=== PATIENT | female | born 2000 | race Caucasian/White ===

== ENCOUNTER 2024-01-16 14:22 | Emergency (ER) | payer OTHER, SELFPAY ==
[2024-01-16] VITALS (8 sets, daily range): BP systolic 118–136; BP diastolic 71–106; BMI 28.5
[2024-01-16 15:00] LABS: % Basophils 0.3 % (0-2); % Eosinophils 0.4 % (0-6); % Immature Granulocytes 0.2 % (0-0.5); % Lymphocytes 26.2 % (20.5-51.1); % Monocytes 8.9 % (1.7-9.3); Absolute Lymphocytes 2.4 10^3/uL (1.2-3.4); Absolute Monocytes 0.8 10^3/uL (0.1-0.6); Hematocrit 41.1 % (37.0-47.0); Hemoglobin 14.6 g/dL (12.0-16.0); Mean Corp Hgb Conc. 35.5 g/dL (33.0-37.0); Mean Corpuscular Hgb 32.9 pg (27.0-31.0); Mean Corpuscular Volume 92.6 fL (81.0-99.0); Mean Platelet Volume 9.3 fL (7.4-10.4); Nucleated Red Blood Cells % 0 %; Platelet Count 243 10^3/uL (130-400); Red Blood Cell Count 4.44 10^6/uL (4.20-5.40); Red Cell Dist. Width 11.9 % (11.5-14.5); White Blood Cell Count 9.3 10^3/uL (4.8-10.8)
[2024-01-16 15:08] LABS: HCG, Serum Qualitative Screen Negative
[2024-01-16 15:10] LABS: ALT (SGPT) 155 U/L (0-35); AST (SGOT) 236 U/L (14-36); Albumin 4.9 g/dl (3.5-5.0); Alkaline Phosphatase 109 U/L (38-126); Blood Urea Nitrogen 13 mg/dl (7-17); Calcium 10.4 mg/dl (8.4-10.2); Carbon Dioxide 25 mmol/L (22-30); Chloride 101 mmol/L (98-107); Estimated Creatinine Clearance > 125 ml/min; Glucose 99 mg/dl (70-99); Lipase 499 U/L (23-300); Potassium 3.5 mmol/L (3.5-5.1); Sodium 137 mmol/L (135-145); Total Bilirubin 0.7 mg/dl (0.2-1.3); Total Protein 7.8 g/dl (6.3-8.2); eGFR > 60.00
[2024-01-16 15:18] LABS: Urine Albumin Trace (Neg - Trace); Urine Bilirubin 1+ (Negative); Urine Character Clear (Clear); Urine Color Amber; Urine Glucose Negative (Negative); Urine Ketone Trace (Negative); Urine Leukocyte 1+ (Negative); Urine Nitrite Negative (Negative); Urine Occult Blood Negative (Negative); Urine Urobilinogen Negative (Neg - 1+)
--- NOTE | 2024-01-16 15:18 | ED.GENMED ---
History of Present Illness
General
Chief Complaint: Abdominal Pain
Source: patient
Exam Limitations: none
Time Seen by Provider: 01/16/24 15:13
Nursing documentation reviewed up to this point in time: agreed with
History of Present Illness
History of Present Illness:
23-year-old female history of migraines states she has had intermittent stomach pains for the past 2 months, only after eating. She has had intermittent loose stools and bloating in her stomach. She describes the pain as dull.
For the past 3 days she has also had intermittent right lower quadrant pain. States it occurs hourly and lasts 10 to 15 minutes 'like a shooting sharp pain shooting up the right side of her abdomen. She states now her pain is 5/10. She denies
fever or chills. Denies chest pain or trouble breathing. Denies UTI symptoms. She states her stools have been loose up until 2 days ago when they are more diarrhea and she has been taking Kaopectate noting much less diarrhea today.
Past History
Past History
ED Past Medical History: Other (migraines)
ED Past Surgical History: None
Social History
Tobacco: Non-smoker
Alcohol: Occasional
Personal: Single
Living: alone
Employment: Employed
Review of Systems
Review of Systems
Allergies reviewed?: Yes
All Other Systems: ROS reviewed and negative except as documented in HPI and ROS
Constitutional: Denies fever or chills
Respiratory: Denies trouble breathing
Cardiac: Denies chest pain
ABD/GI: Reports abdominal pain and diarrhea (improving with Kaopectate); Denies vomiting, bloody stools or black stools
: Reports no symptoms
Musculoskeletal: Reports no symptoms
Skin: Reports no symptoms
Neurological: Reports no symptoms
Phy Exam
Physical Exam
Physical Exam:
GENERAL: No acute distress. A&Ox3.
CONSTITUTIONAL: Afebrile.
EYES: , conjunctivae normal
ENMT: moist mucus membranes, Pharynx nl
RESPIRATORY: Regular respirations, nonlabored, lungs clear.
CARDIOVASCULAR: Regular rate and rhythm, no murmurs, no rubs.
GI: Soft, tender to palpate right lower and right upper quadrants. Nondistended, normal BS
MUSCULOSKELETAL: Moves with ease. Well perfused.
SKIN: Warm, dry, pink
PSYCH: Normal mood and affect. Well kept, interactive and appropriate
NEUROLOGIC: Awake, alert and oriented. No focal neurological deficits
Course
Orders/Labs/Results
Orders:
Orders
01/16/24 14:28
IV Insert/Care/Rem.- Treatment PRN
Test Result ONCE
01/16/24 14:33
Urinalysis Reflex To Culture Urgent
Date Specimen was Collected: 01/16/24
Time Specimen was Collected: 14:28
Urine Microscopic Reflex Cult Urgent
Urine Culture Urgent
RYLEE Source: U
Specimen Description:
Date Specimen was Collected: 01/16/24
Time Specimen was Collected: 14:28
01/16/24 14:50
Complete Blood Count/With Diff Urgent
Comprehensive Metabolic Panel Urgent
HCG, Serum Qualitative Screen Urgent
Comment: Notify provider if positive test present
Lipase Urgent
01/16/24 15:28
US Abdomen - Appendix Only Urgent
Comment:
Reason For Exam: RLQ pain
US Abdomen Complete/Upper Urgent
Comment:
Reason For Exam: RUQ pain
01/16/24 15:29
0.9% Sodium Chloride 1000 ml [Nss] 1,000 ml IV BOLUS
Ketorolac [Toradol] 15 mg IV NOW STA
01/16/24 18:41
CT Abd/pel W Iv And Oral Contr Urgent
Comment:
Reason For Exam: Right side abdominal pain
Iohexol [Omnipaque] See Protocol PO NOW STA
Abnormal Lab Results
01/16/24 01/16/24
14:33 14:50
MCH 32.9 H pg
(27.0-31.0)
Absolute Monos (auto) 0.8 H 10^3/uL
(0.1-0.6)
Calcium 10.4 H mg/dl
(8.4-10.2)
AST 236 H U/L
(14-36)
ALT 155 H U/L
(0-35)
Lipase 499 H U/L
(23-300)
Urine Ketones Trace A
(Negative)
Urine Bilirubin 1+ A
(Negative)
Leukocyte Esterase Rfl 1+ A
(Negative)
Urine Bacteria (Reflex) Few A
(Negative)
01/16/24 14:50
01/16/24 14:50
Vital Signs
Initial and Last Documented VS:
Initial Vital Signs
Temp Pulse Resp BP Pulse Ox
99.3 F 86 16 136/106 98
01/16/24 14:23 01/16/24 14:23 01/16/24 14:23 01/16/24 14:23 01/16/24 14:23
Last Documented Vital Signs
Temp Pulse Resp BP Pulse Ox
99.3 F 77 20 128/85 99
01/16/24 14:23 01/16/24 21:38 01/16/24 21:38 01/16/24 21:38 01/16/24 21:38
MDM/Problems Addressed
Differential Diagnosis Includes:
Viral gastroenteritis, Biliary colic, cholecystitis, choledocholithiasis, appendicitis
MDM/Problems Addressed:
23-year-old female history of migraines states she has had intermittent stomach pains for the past 2 months, only after eating. She has had intermittent loose stools and bloating in her stomach. She describes the pain as dull.
For the past 3 days she has also had intermittent right lower quadrant pain. States it occurs hourly and lasts 10 to 15 minutes 'like a shooting sharp pain shooting up the right side of her abdomen. She states now her pain is 5/10. She denies
fever or chills. Denies chest pain or trouble breathing. Denies UTI symptoms. She states her stools have been loose up until 2 days ago when they are more diarrhea and she has been taking Kaopectate noting much less diarrhea today.
Febrile, NAD, pleasant, states pain is 5/10 at this time. Has taken nothing for pain.
CBC with no clinically significant abnormality
CMP: Lipase 499, elevated AST and ALT,
hCG negative
UA: +1 bilirubin, no sign of infection.
6:30 PM
Ultrasound of the appendix radiology report read: No sonographic evidence of appendicitis.
Upper abdomen ultrasound radiology report read: The gallbladder is well-visualized and is normal. No dilatation of the common or intrahepatic ducts. The pancreas is normal, diffuse fatty filtration liver. Otherwise normal.
Case discussed with Dr. Barajas, will proceed to CAT scan. Patient states she has had some relief after IV Toradol.
9:[address] abdomen pelvis with p.o. and IV contrast radiology report read: Diffuse fatty infiltration of liver. Otherwise normal.
No diarrhea since arrival
This is most likely viral gastroenteritis causing mild elevation in liver enzymes and lipase.
Pt given copies of all reports and lab work. She will f/u with her PCP
Recommend OTC, GI f/u
*Critical Care Note
Total Time (30-74mins, 75-104mins- exclusive of procedures): Not Applicable
ED Attending Note
-
Portions of this chart may have been created with voice recognition software.� Occasional wrong word or��sound alike� substitutions may have occurred due to the inherent limitations of voice recognition software.
Discharge Plan
Departure
Patient Disposition: Home (Routine Discharge)
Date of Disposition: 01/16/24
Time of Disposition: 21:19
Patient with high blood pressure during this ER visit?: No
Condition: Good
Discharge Problem:
Abdominal pain, Gastroenteritis
Instructions: Viral gastroenteritis in adults, Acid Reflux and GERD in Adults (DC), Abdominal Pain
Prescriptions:
No Action
No Current Medications
0
Referrals:
Joseline Lorenzo MD [Family Provider] - Call in 1-3 days for appt
Activity Restrictions/Additional Instructions:
As we discussed, call your doctors office Friday morning to make an appointment for sometime within the next 2 weeks to repeat your blood work
Take copies of all test results with you to discuss.
Try over the counter Omeprazole 20 mg daily and let your doctor know if it helps
Interventions
Interventions:
*Risk Screen - Suicide Last Done: 01/16/24 14:23
*General Assessment Last Done: 01/16/24 14:23
*Neglect/Abuse Screening Last Done: 01/16/24 14:23
ED- Fall Risk Assessment Last Done: 01/16/24 15:03
*ED COVID-19 Vaccine History Last Done: 01/16/24 21:38
*Nursing Disposition Last Done: 01/16/24 21:38
EY-Lduqbz-Vgegzlxkat Assessment Last Done: 01/16/24 15:03
Discharge Date and Time
Discharge Date/Time: 01/16/24 21:39
Print Language: CROATIAN
[2024-01-16] MEDS: NSS 1000 IV (15:39)
[2024-01-16] MEDS: TORADOL 15 MG IV (15:39)
[2024-01-16 16:31] LABS: Urine Calcium Oxalate Crystals Present
[2024-01-16 16:32] LABS: Urine Bacteria Few (Negative); Urine Mucus Few; Urine Red Blood Cell 0-2 /HPF (0-2); Urine Squamous Cell 26-30 /LPF (Few)
[2024-01-16] MEDS: OMNIPAQUE 50 ML PO (18:47)
== END 2024-01-16 21:39 | disposition home or self-care (01) ==
LOC: EMR 14:22
PROVIDERS: Emergency Medicine; EMERGENCY PHYSICIAN Emergency Medicine; FAMILY PHYSICIAN Family Medicine
DX: K52.9 Noninfective gastroenteritis and colitis, unspecified (principal); R10.31 Right lower quadrant pain
CPT/HCPCS: 99285; 96374; 96361; 74177; 76700; 76705; 80053; 81003; 81015; 83690; 84703; 85025; 87086; Q9967

== ENCOUNTER → 2024-03-03 06:22 | Day surgery (SDC) | payer OTHER, SELFPAY | LOC: GI 06:22 | PROVIDERS: ATTENDING PHYSICIAN Internal Medicine Gastroenterology | DX: K21.00 Gastro-esophageal reflux disease with esophagitis, without bleeding (principal); K31.7 Polyp of stomach and duodenum; K44.9 Diaphragmatic hernia without obstruction or gangrene; K57.10 Diverticulosis of small intestine without perforation or abscess without bleeding; R10.12 Left upper quadrant pain; R12 Heartburn | CPT/HCPCS: 43239; 88305; 88342 ==

== ENCOUNTER 2024-08-12 20:53 | Emergency (ER) | payer OTHER, SELFPAY ==
[2024-08-12 20:54] VITALS: BP 135/93
[2024-08-12 21:19] VITALS: BMI 24.5
--- NOTE | 2024-08-12 22:08 | ED.GENMED ---
History of Present Illness
<DO Ankit Person Last Filed: 08/12/24 22:10>
General
Chief Complaint: Abdominal Pain
Source: patient
Time Seen by Provider: 08/12/24 22:00
History of Present Illness
History of Present Illness:
23-year-old female presents to the emergency room complaining of upper abdominal pain. Pain began approximately 1-2 o'clock. Pain is associate with some nausea and vomiting. Nothing seems to make the pain better. It gets worse with certain
movements. No previous episodes of similar pain. Patient denies any previous abdominal surgery. She states she does have a history of a hiatal hernia. She has mild constipation as a chronic issue. She took Tylenol earlier today without any
improvement.
Past History
<DO Ankit Person Last Filed: 08/12/24 22:10>
Past History
ED Past Medical History: Other (migraines)
ED Past Surgical History: None
Social History
Tobacco: Non-smoker
Alcohol: Occasional
Personal: Single
Living: alone
Employment: Employed
Phy Exam
<DO Ankit Person Last Filed: 08/12/24 22:10>
Physical Exam
Physical Exam:
General: Awake, Alert, Oriented X3. No acute distress but appears uncomfortable
Vitals: unremarkable
Head: Atraumatic
Eyes: Pupils equal, EOMI
Throat: Airway intact, no exudates
Neck: Trachea midline
Lungs: Clear and equal b/l
Heart: Regular rate, no murmurs
Abd: Soft, moderate tenderness to palpation in the bilateral upper quadrant and epigastric region, No pulsatile mass
Neuro: Nonfocal
Skin: Warm, dry, no rash
Extremities: pulses equal b/l, no edema
Course
<Art Barajas DO - Last Filed: 08/12/24 22:10>
Orders/Labs/Results
Orders:
Orders
08/12/24 22:07
0.9% Sodium Chloride 1000 ml [Nss] 1,000 ml IV BOLUS
Ketorolac [Toradol] 15 mg IV NOW STA
Ondansetron Injectable [Zofran] 4 mg IV NOW STA
Test Result ONCE
08/12/24 22:08
US Abdomen Complete/Upper Urgent
Comment:
Reason For Exam: ruq and epigastric pain
08/12/24 22:20
Amylase Urgent
Complete Blood Count/With Diff Urgent
Comprehensive Metabolic Panel Urgent
Comment: ADDON
HCG, Serum Qualitative Screen Urgent
Comment: ADDED
Lipase Urgent
08/12/24 22:48
Add On- LAB Urgent
Tests Added?: CMP
08/12/24 22:54
Add On- LAB Urgent
Tests Added?: qualitative hcg
08/12/24 22:58
HYDROmorphone [Dilaudid] 0.5 mg IV NOW STA
08/12/24 23:42
Iohexol [Omnipaque] See Protocol PO NOW STA
08/13/24 02:30
CT Abd/pel W Iv And Oral Contr Urgent
Reason For Exam: abdominal pain
08/13/24 02:38
Diphenhydramine [Benadryl] 50 mg .ROUTE .STK-MED ONE
Lorazepam [Ativan] 2 mg .ROUTE .STK-MED ONE
Abnormal Lab Results
08/12/24
22:20
WBC 15.7 H 10^3/uL
(4.8-10.8)
MCH 32.9 H pg
(27.0-31.0)
Abs Immat Gran (auto) 0.1 H 10^3/uL
(0-0.05)
Absolute Neuts (auto) 14.3 H 10^3/uL
(1.4-6.5)
Absolute Lymphs (auto) 1.0 L 10^3/uL
(1.2-3.4)
Neutrophils % 91.1 H %
(42.2-75.2)
Lymphocytes % 6.4 L %
(20.5-51.1)
Sodium 133 L mmol/L
(135-145)
Carbon Dioxide 15 L mmol/L
(22-30)
Glucose 127 H mg/dl
(70-99)
Calcium 10.5 H mg/dl
(8.4-10.2)
Total Bilirubin 1.4 H mg/dl
(0.2-1.3)
AST 55 H U/L
(14-36)
ALT 42 H U/L
(0-35)
Albumin 5.3 H g/dl
(3.5-5.0)
08/12/24 22:20
08/12/24 22:20
Vital Signs
Initial and Last Documented VS:
Initial Vital Signs
Temp Pulse Resp BP Pulse Ox
36.6 C 66 17 135/93 96
08/12/24 20:54 08/12/24 20:54 08/12/24 20:54 08/12/24 20:54 08/12/24 20:54
Last Documented Vital Signs
Temp Pulse Resp BP Pulse Ox
36.6 C 82 17 114/89 97
08/12/24 20:54 08/13/24 04:00 08/13/24 04:00 08/13/24 04:00 08/13/24 04:00
<Peter Christian MD - Last Filed: 08/13/24 07:14>
Orders/Labs/Results
Orders:
Orders
08/12/24 22:07
0.9% Sodium Chloride 1000 ml [Nss] 1,000 ml IV BOLUS
Ketorolac [Toradol] 15 mg IV NOW STA
Ondansetron Injectable [Zofran] 4 mg IV NOW STA
Test Result ONCE
08/12/24 22:08
US Abdomen Complete/Upper Urgent
Comment:
Reason For Exam: ruq and epigastric pain
08/12/24 22:20
Amylase Urgent
Complete Blood Count/With Diff Urgent
Comprehensive Metabolic Panel Urgent
Comment: ADDON
HCG, Serum Qualitative Screen Urgent
Comment: ADDED
Lipase Urgent
08/12/24 22:48
Add On- LAB Urgent
Tests Added?: CMP
08/12/24 22:54
Add On- LAB Urgent
Tests Added?: qualitative hcg
08/12/24 22:58
HYDROmorphone [Dilaudid] 0.5 mg IV NOW STA
08/12/24 23:42
Iohexol [Omnipaque] See Protocol PO NOW STA
08/13/24 02:30
CT Abd/pel W Iv And Oral Contr Urgent
Reason For Exam: abdominal pain
08/13/24 02:38
Diphenhydramine [Benadryl] 50 mg .ROUTE .STK-MED ONE
Lorazepam [Ativan] 2 mg .ROUTE .STK-MED ONE
Abnormal Lab Results
08/12/24
22:20
WBC 15.7 H 10^3/uL
(4.8-10.8)
MCH 32.9 H pg
(27.0-31.0)
Abs Immat Gran (auto) 0.1 H 10^3/uL
(0-0.05)
Absolute Neuts (auto) 14.3 H 10^3/uL
(1.4-6.5)
Absolute Lymphs (auto) 1.0 L 10^3/uL
(1.2-3.4)
Neutrophils % 91.1 H %
(42.2-75.2)
Lymphocytes % 6.4 L %
(20.5-51.1)
Sodium 133 L mmol/L
(135-145)
Carbon Dioxide 15 L mmol/L
(22-30)
Glucose 127 H mg/dl
(70-99)
Calcium 10.5 H mg/dl
(8.4-10.2)
Total Bilirubin 1.4 H mg/dl
(0.2-1.3)
AST 55 H U/L
(14-36)
ALT 42 H U/L
(0-35)
Albumin 5.3 H g/dl
(3.5-5.0)
08/12/24 22:20
08/12/24 22:20
Vital Signs
Initial and Last Documented VS:
Initial Vital Signs
Temp Pulse Resp BP Pulse Ox
36.6 C 66 17 135/93 96
08/12/24 20:54 08/12/24 20:54 08/12/24 20:54 08/12/24 20:54 08/12/24 20:54
Last Documented Vital Signs
Temp Pulse Resp BP Pulse Ox
36.6 C 82 17 114/89 97
08/12/24 20:54 08/13/24 04:00 08/13/24 04:00 08/13/24 04:00 08/13/24 04:00
<Peter Christian MD - Last Filed: 08/13/24 07:14>
*Critical Care Note
Total Time (30-74mins, 75-104mins- exclusive of procedures): Not Applicable
<Peter Christian MD - Last Filed: 08/13/24 07:14>
Update Note
Update Note:
UPDATE (Peter Christian MD)
I have seen and evaluated the patient after signout and reviewed all labs and imaging.
Focused HPI: 23-year-old female presents to the emergency room for evaluation of abdominal pain. Started earlier today located in the epigastrium. Associated with nausea and vomiting. Similar symptoms in the past she says she was seen by a
candy cutter machine found to have hiatal hernia but no other clear cause.
Physical exam: Awake alert no distress. Abdomen soft, nontender on my assessment. No masses appreciated. Vital signs normal.
Medical Decision Makin-year-old female presenting with upper abdominal pain with nausea and vomiting. She was given Toradol, Zofran and ultimately dose of Dilaudid and her symptoms essentially resolved. She had lab work sent off including a
CBC which showed a slight leukocytosis. Her CMP was notable for marginal elevated T. bili to 1.4 and marginal transaminitis. Her hCG is negative. Her lipase is normal. She had an upper abdominal ultrasound which showed no gallstones but did show
some fatty liver disease which likely accounts for her abnormal transaminases. She is currently pending CT abdomen pelvis.
CT abdomen pelvis shows no acute pathology. Stable for discharge suspect that this is likely gastritis will start on a PPI. Patient comfortable with this plan. Follow-up with her PCP. All questions answered.
ED Attending Note
Dariuslt;Art Barajas, - Last Filed: 08/12/24 22:10>
-
Portions of this chart may have been created with voice recognition software.� Occasional wrong word or��sound alike� substitutions may have occurred due to the inherent limitations of voice recognition software.
Discharge Plan
Departure
Patient Disposition: Home (Routine Discharge)
Date of Disposition: 08/13/24
Time of Disposition: 03:47
Patient with high blood pressure during this ER visit?: No
Discharge Problem:
Abdominal pain
Instructions: Abdominal Pain
Prescriptions:
New
pantoprazole [Protonix] 40 mg tablet,delayed release (DR/EC)
40 mg PO DAILY Qty: 30 0RF
No Action
dextroamphetamine-amphetamine [Adderall] 10 mg Tablet
10 mg PO DAILY PRN (Reason: extra dose for school)
dextroamphetamine-amphetamine [Adderall XR] 30 mg Capsule,Extended Release 24hr
30 mg PO DAILY
Referrals:
Joseline Lorenzo MD [Family Provider] - Follow up in 5-7 days
Activity Restrictions/Additional Instructions:
Thank you for visiting the Emergency Department at [facility].
1. Please schedule a follow up appointment as directed. Call first thing tomorrow morning to make an appointment.
2. If indicated, please take your medications as instructed and indicated on discharge paperwork.
3. If any of your symptoms do not improve, or persist, or become more severe within 6-12 hours, please return to the emergency department for further care.
4. Please return to the emergency department if you develop a headache, neck pain/stiffness, fever greater than 100.4F, chest pain, shortness of breath, persistent nausea, vomiting, slurred speech, difficulty walking, numbness/tingling, weakness,
signs of infection or any other symptoms that are worrisome to you.
Please call [phone] if you have any questions.
Interventions
Interventions:
*Risk Screen - Suicide Last Done: 08/12/24 20:54
*General Assessment Last Done: 08/12/24 21:09
*Neglect/Abuse Screening Last Done: 08/12/24 20:54
ED- Fall Risk Assessment Last Done: 08/12/24 21:09
*ED COVID-19 Vaccine History Last Done: 08/12/24 21:09
*Nursing Disposition Last Done: 08/13/24 04:00
[place]-Owcvhf-Btmpfmwfvm Assessment Last Done: 08/12/24 21:09
Discharge Date and Time
Discharge Date/Time: 08/13/24 04:00
Print Language: MAORI
[2024-08-12] MEDS: NSS 1000 IV (22:21)
[2024-08-12] MEDS: ZOFRAN 4 MG IV (22:22)
[2024-08-12] MEDS: TORADOL 15 MG IV (22:27)
[2024-08-12 22:36] LABS: % Basophils 0.2 % (0-2); % Immature Granulocytes 0.4 % (0-0.5); % Lymphocytes 6.4 % (20.5-51.1); % Monocytes 1.9 % (1.7-9.3); % Neutrophils 91.1 % (42.2-75.2); Absolute Immature Granulocytes 0.1 10^3/uL (0-0.05); Absolute Monocytes 0.3 10^3/uL (0.1-0.6); Absolute Neutrophils 14.3 10^3/uL (1.4-6.5); Hematocrit 40.4 % (37.0-47.0); Hemoglobin 14.5 g/dL (12.0-16.0); Mean Corp Hgb Conc. 35.9 g/dL (33.0-37.0); Mean Corpuscular Hgb 32.9 pg (27.0-31.0); Mean Corpuscular Volume 91.6 fL (81.0-99.0); Mean Platelet Volume 9.1 fL (7.4-10.4); Nucleated Red Blood Cells % 0 %; Platelet Count 312 10^3/uL (130-400); Red Blood Cell Count 4.41 10^6/uL (4.20-5.40); Red Cell Dist. Width 11.9 % (11.5-14.5); White Blood Cell Count 15.7 10^3/uL (4.8-10.8)
[2024-08-12 22:48] LABS: Amylase 67 U/L (30-110); Lipase 68 U/L (23-300)
[2024-08-12 23:06] LABS: ALT (SGPT) 42 U/L (0-35); AST (SGOT) 55 U/L (14-36); Albumin 5.3 g/dl (3.5-5.0); Alkaline Phosphatase 103 U/L (38-126); Blood Urea Nitrogen 12 mg/dl (7-17); Calcium 10.5 mg/dl (8.4-10.2); Carbon Dioxide 15 mmol/L (22-30); Chloride 100 mmol/L (98-107); Estimated Creatinine Clearance > 125 ml/min; Glucose 127 mg/dl (70-99); Potassium 3.8 mmol/L (3.5-5.1); Sodium 133 mmol/L (135-145); Total Bilirubin 1.4 mg/dl (0.2-1.3); Total Protein 8.1 g/dl (6.3-8.2); eGFR > 60.00
[2024-08-12] MEDS: DILAUDID 0.5 MG IV (23:29)
[2024-08-13] MEDS: OMNIPAQUE 50 ML PO (00:05)
[2024-08-13 00:54] LABS: HCG, Serum Qualitative Screen Negative
[2024-08-13 01:00] VITALS: BP 102/73
[2024-08-13 02:00] VITALS: BP 116/72
[2024-08-13 03:00] VITALS: BP 103/58
[2024-08-13 04:00] VITALS: BP 114/89
== END 2024-08-13 04:00 | disposition home or self-care (01) ==
LOC: EMR 20:53
PROVIDERS: EMERGENCY PHYSICIAN Emergency Medicine; FAMILY PHYSICIAN Family Medicine
DX: R10.11 Right upper quadrant pain (principal); R11.2 Nausea with vomiting, unspecified; R10.13 Epigastric pain; K44.9 Diaphragmatic hernia without obstruction or gangrene; K76.0 Fatty (change of) liver, not elsewhere classified; K59.00 Constipation, unspecified; G43.909 Migraine, unspecified, not intractable, without status migrainosus
CPT/HCPCS: 99284; 96374; 96375 ×2; 96361; 74177; 76700; 80053; 82150; 83690; 84703; 85025; Q9967